=== PATIENT | male | born 1950 | race Caucasian/White ===

== ENCOUNTER 2018-04-03 06:43 | Inpatient (IN) | payer OTHER ==
[2018-04-03] VITALS (7 sets, daily range): BP systolic 105–144; BP diastolic 58–77
[~2018-04-03] VITALS: Ht 177.8 cm; Wt 74.8 kg
--- NOTE | ~2018-04-03 | EKG ---
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
--- NOTE | ~2018-04-03 | EKG ---
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 : 1950 Requested By: Yesenia Ramos Order Number: [id number] MD: John Grey Measurements Intervals [place] Rate: 60 P: [place]: 195 QRS: 52 QRSD: 98 T: 74 QT: 425 QTc: 425 Interpretive Statements Atrial-paced complexes Minimal ST elevation, inferior leads Baseline wander in lead(s) V3 No previous ECG available for comparison Electronically Signed On 04-03-2018 13:09:03 CDT by John Grey [email or web address] <ELECTRONICALLY SIGNED> By: John Grey MD, [facility] 04/03/18 1309 8 8 John Grey MD, [facility] /EPI
--- NOTE | ~2018-04-03 | 2DMMODE ---
[facility] [address] [place] [address] 2 D/M-MODE ECHOCARDIOGRAM Name: FORREST CERDA Room #: 418-P ADM IN .R.#: [id number] Admission: 04/03/18 Attend Phys: Gary Small, Discharge: Date of : 46 Date of Service: 04/03/18 1321 Report #: [id number] THIS REPORT FOR: //name// APPROVED REPORT Study performed: 04/03/2018 12:12:50 EXAM: Comprehensive 2D, Doppler, and color-flow Echocardiogram Patient Location: Bedside Room #: 418 Status: on-call BSA: 1.92 HR: 60 bpm BP: 120/71 mmHg Other Information Study Quality: Adequate Indications Chest Pain Hypertension/HDD Mitral valve repair 2D Dimensions RVDd: 40.47 mm LVEF(%): 53.32 (>50%) IVSd: 9.44 (7-11mm) LVOT Diam: 20.99 (18-24mm) LVDd: 49.62 mm PWd: 9.29 (7-11mm) Ascending Ao: 36.60 (22-36mm) LVDs: 35.94 (25-40mm) Aortic Root: 33.51 mm IVC: 18.00 mm Aldridge's LVEF: 53.32 % Volumes Left Atrial Volume (Systole) Single Plane 4CH: 73.65 mL Single Plane 2CH: 76.25 mL LA ESV Index: 43.00 mL/m2 Aortic Valve AoV Peak José Miguel.: 1.04 m/s AO Peak Gr.: 4.31 mmHg LVOT Max P.71 mmHg LVOT Max V: 0.82 m/s DERRICK Vmax: 2.74 cm2 Mitral Valve E/A Ratio: 0.9 [facility] [place] [address] 2 D/M-MODE ECHOCARDIOGRAM Name: FORREST CERDA Room #: 418-P [facility] IN ..#: [id number] Admission: 04/03/18 Attend Phys: Gary Small, Discharge: Date of : 46 Date of Service: 04/03/18 1321 Report #: [id number] MV Decel. Time: 350.42 ms MV E Max José Miguel.: 0.94 m/s MV A José Miguel.: 1.04 m/s MV PHT: 101.62 ms IVRT: 119.95 ms Pulmonary Valve PV Peak José Miguel.: 0.82 m/s PV Peak Gr.: 2.70 mmHg Pulmonary Vein P Vein S: 0.27 m/s P Vein A: 0.18 m/s P Vein D: 0.46 m/s P Vein A Dur.: 96.9 msec P Vein S/D Ratio: 0.59 Tricuspid Valve TR Peak José Miguel.: 2.53 m/s TR Peak Gr.: 25.69 mmHg PA Pressure: 30.00 mmHg Left Ventricle The left ventricle is normal size. There is normal LV segmental wall motion. There is normal left ventricular wall thickness. The left ventricular systolic function is normal. The left ventricular ejection fraction is within the normal range. LVEF is 55-60%. Grade I - abnormal relaxation pattern. Right Ventricle The right ventricle is normal size. The right ventricular systolic function is normal. Pacemaker lead is present in the right ventricle. Atria Left atrium is dilated. Right atrium is dilated. Pacemaker lead is present in the right atrium. Aortic Valve The aortic valve is normal in structure. Trace aortic regurgitation. There is no aortic valvular stenosis. Mitral Valve #34 mm Mitral valve ring is noted. Changes consitent with posterior leaflet repair Trace mitral regurgitation. No evidence of mitral valve stenosis. Tricuspid Valve The tricuspid valve is normal in structure. There is trace to mild tricuspid regurgitation. The right atrial pressure is estimated at 30 [facility] [address] [place] [address] 2 D/M-MODE ECHOCARDIOGRAM Name: FORREST CERDA Room #: 418-P [facility] IN .R.#: [id number] Admission: 04/03/18 Attend Phys: Gary Small, Discharge: Date of : 46 Date of Service: 04/03/18 1321 Report #: [id number] mmHg. There is no pulmonary hypertension. Pulmonic Valve The pulmonary valve is normal in structure. Trace pulmonic regurgitation. Great Vessels The aortic root is normal in size. IVC is normal in size and collapses >50% with inspiration. Pericardium There is no pericardial effusion. <Conclusion> The left ventricular systolic function is normal. There is normal LV segmental wall motion. LVEF is 55-60%. Mild diastolic dysfunction Both atria are mildly dilated. Pacemaker lead is present in the right atrium. #34 mm mitral valve ring noted. Changes consitent with posterior leaflet repair. Trace mitral regurgitation, no stenosis. There is trace to mild tricuspid regurgitation. Pulmonary artery pressure estimated at 30 mmHg. There is no pericardial effusion. <ELECTRONICALLY SIGNED> By: John Grey MD, FACC 04/03/18 1321 132 20 John Grey MD, FACC /INF
--- NOTE | ~2018-04-03 | H ---
[facility] [place] [address] HISTORY AND PHYSICAL Name: PRASHANTFORREST Hannah Room #: 418-P [facility] IN M.R.#: [id number] Admission: 04/03/18 Attend Phys: Gary Small MD Discharge: 04/04/18 Date of : 46 Report #: [id number] THIS REPORT FOR: //name// CC: Gary Small [facility] unknown DATE OF SERVICE: 04/03/2018 REASON FOR THE PRESENTATION: Chest pain. HISTORY OF PRESENT ILLNESS: A 68-year-old who woke up 1:30 this morning with left-sided chest pain associated with taking a deep breath. 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 He has also had a cardiac ablation back in 2000. Due to repeated episodes of PVC associated with significant symptoms. He actually lives in [place] and was visiting some family members here. When he woke up this morning, he had some issues with left-sided chest pain associated with nausea. No radiation of the pain. No previous similar episodes. No arm or neck pain. No loss of consciousness. No hematemesis. No hemoptysis and no cough. He denies any history of DVT in the past. He is not aware of any previous coronary artery disease and never had cardiac stents. His mitral valve band angioplasty was done in 1998 in [facility] and his pacemaker was placed back in 2000. Initial troponins were negative. Because of his risk factors, he was admitted for further evaluation and management. PAST MEDICAL HISTORY: 1. Hypertension. 2. Hyperlipidemia. 3. Status post band mitral valve annuloplasty. 4. Status post pacemaker for daniel-tachy syndrome. 5. Status post ablation for PVCs. 6. Bilateral shoulder surgeries. FAMILY HISTORY: Significant for hypertension. SOCIAL HISTORY: He denies drug or alcohol abuse. He is very active. He is retired and lives in [place]. MEDICATIONS: 1. Multaq. 2. Omeprazole. 3. Ramipril. 4. Rosuvastatin. REVIEW OF SYSTEMS: [facility] [address] [place] [address] HISTORY AND PHYSICAL Name: FORREST CERDA Room #: 418-P [facility] IN .R.#: [id number] Admission: 04/03/18 Attend Phys: Gary Small MD Discharge: 04/04/18 Date of : 46 Report #: [id number] GENERAL: No fever or chills. CARDIOVASCULAR: As per the history of present illness. PULMONARY: No cough or hemoptysis. GASTROINTESTINAL: No nausea or vomiting. GENITOURINARY: No frequency, no urgency. PHYSICAL EXAMINATION: GENERAL: He is alert, oriented, in no apparent distress. VITAL SIGNS: Blood pressure is 121/58. HEAD AND NECK: No jugular venous distention, no bruit, no thyromegaly. CHEST: Clear to auscultation bilaterally. CARDIOVASCULAR: Regular, no rub detected. ABDOMEN: Soft, nontender with no hepatosplenomegaly. LOWER EXTREMITIES: No edema, intact peripheral pulses. SKIN: There is a left-sided chest wall pacemaker. Scars on both shoulders. LABORATORY VALUES: Reviewed. White blood cell count 13.7, sodium 140, potassium 4.2, BUN is 21, creatinine is 1.4. Initial troponin is negative. Chest x-ray was reviewed with no acute process. ASSESSMENT, IMPRESSION AND PLAN: 1. Chest pain. 2. Hypertension. 3. Status post pacemaker insertion. 4. Mitral valve band annuloplasty. 5. Hyperlipidemia. 6. Ablation for premature ventricular contractions in the past. 7. Admission. 8. Resume his blood pressure medications. 9. Cardiology consultation. 10. Serial troponins and EKGs. 11. Routine deep vein thrombosis and gastrointestinal prophylaxis. 12. If persistent symptoms, we will send the patient to have a pulmonary embolism study given his recent flights. <ELECTRONICALLY SIGNED> By: Gary Small MD 04/04/18 1548 0922 1012 Gary Small MD /nt
--- NOTE | ~2018-04-03 | HC ---
[facility] [place] [address] CONSULTATION Name: FORREST CERDA Room #: 418-P [facility] IN M.R.#: [id number] Admission: 04/03/18 Attend Phys: Gary Small MD Discharge: 04/04/18 Date of : 46 Report #: [id number] THIS REPORT FOR: //name// CC: Gary Small [facility] unknown DATE OF SERVICE: 04/03/2018 REASON FOR CONSULTATION: Chest pain. HISTORY OF PRESENT ILLNESS: The patient is a 68-year-old gentleman with a moderately complex cardiac history including remote mitral valve repair in 1998 at the [facility] by Dr. Edson Campbell. He underwent subsequent cardiac ablation in [place] a couple of years thereafter. He had symptomatic bradycardia with placement of a dual chamber St. Anatoly pacemaker. He has had atrial fibrillation seen on device interrogation, although nothing recently, this has been suppressed with Multaq. He is visiting to the [place] area from [place]. He awakened in the middle of the night with midsternal chest tightness, this was predictably worse with deep breathing. The pain seemed to be worse when he was on his left side. He presented to the Emergency Department where he was given aspirin. His EKG demonstrated atrial pacing with very subtle 0.[address] segment elevation in limb lead III. He denies any other associated symptoms. He denies symptoms of recurrent atrial fibrillation. No heart failure symptoms, near syncope or syncope. MEDICATIONS: Include ramipril, rosuvastatin, omeprazole and Multaq 400 mg twice daily. PAST MEDICAL HISTORY: His past history and medical records have been reviewed and include a history of hypertension, dyslipidemia, mitral valve repair with annuloplasty ring, sick sinus syndrome with pacemaker implantation, history of PVCs and bilateral shoulder surgeries. SOCIAL HISTORY: He is a nonsmoker, nondrinker. He is active. He exercises regularly without limitation. 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 FAMILY HISTORY: Notable for heart disease of some sort. His dad had mitral valve surgery. REVIEW OF SYSTEMS: All systems negative except as that noted above. PHYSICAL EXAMINATION: GENERAL: He is a pleasant gentleman, in no distress. [facility] [address] [place] [address] CONSULTATION Name: FORREST CERDA Room #: 418-P [facility] IN .R.#: [id number] Admission: 04/03/18 Attend Phys: Gary Small MD Discharge: 04/04/18 Date of : 46 Report #: [id number] VITAL SIGNS: Blood pressure is 120/70, heart rate is 60 and regular. He is afebrile, 5 feet 10 inches tall, 165 pounds. HEENT: There are neither xanthelasma, subcutaneous xanthomata, oral mucosal or digital cyanosis or kyphoscoliosis present. CHEST: Clear to auscultation and percussion. CARDIOVASCULAR: Regular rate and rhythm with normal S1, S2. There is a soft systolic murmur at the left sternal border, not sure if there is a rub or not. Jugular venous pressure is not elevated. ABDOMEN: Soft and nontender. EXTREMITIES: Without cyanosis, clubbing or edema. Radial pulses are 2+. NEUROLOGIC: He is alert with a nonfocal exam. LABORATORY DATA: EKG as detailed above. Sodium 140, potassium 4.2, creatinine 1.4, troponin 0. D-dimer normal. White count 13.7, hemoglobin 15, hematocrit 43, platelet count 271. Chest x-ray is normal. IMPRESSION: 1. Chest pain with pleuritic and/or pericarditic features, possible pericarditis. 2. Remote mitral valve repair for prolapse in 1998. 3. Paroxysmal atrial fibrillation with remote ablation, prior St. Anatoly dual-chamber pacemaker implantation. 4. Hypertension. 5. Dyslipidemia. RECOMMENDATIONS: 1. Sedimentation rate and CRP. 2. Echocardiogram with Doppler. 3. If troponins are negative and clinical course remains stable, consider outpatient stress testing. <ELECTRONICALLY SIGNED> By: John Grey MD, FACC 04/05/18 0851 1126 1754 John Grey MD, FACC /nt
--- NOTE | ~2018-04-03 | EKG ---
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 : 1950 Requested By: Yesenia Ramos Order Number: [id number] MD: John Grey Measurements Intervals [place] Rate: 66 P: 36 NE: 226 QRS: 53 QRSD: 102 T: 78 QT: 414 QTc: 434 Interpretive Statements Atrial-paced complexes Prolonged NE interval Minimal inferior ST elevation No previous ECG available for comparison Electronically Signed On 04-04-2018 12:57:59 CDT by John Grey [email or web address] <ELECTRONICALLY SIGNED> By: John Grey MD, [facility] 04/04/18 1257 0649 0649 John Grey MD, [facility] /EPI
--- NOTE | ~2018-04-03 | EKG ---
[address] [address] ELECTROCARDIOGRAM REPORT Name: FORREST CERDA Hannah Room #: 418- DIS IN M.R.#: [id number] Admission: 04/03/18 Attend Phys: Gary Small MD Discharge: 04/04/18 Date of : 46 Report #: [id number] THIS REPORT FOR: //name// [facility] Test Date: 2018-04-04 Test Time: 09:11:32 Pat Name: FORREST CERDA Department: Room: 418 Gender: M Clinical Product Manager: RANDY : 1950 Requested By: John Grey Order Number: [id number] MD: John Grey Measurements Intervals [place] Rate: 60 P: [place]: 130 QRS: 7 QRSD: 104 T: 93 QT: 425 QTc: 425 Interpretive Statements Atrial-paced rhythm Low voltage, precordial leads Borderline repolarization abnormality Minimal inferior ST segment elevation, unchanged Compared to ECG 04/03/2018 07:12:46 No significant change was found Electronically Signed On 04-04-2018 13:07:30 CDT by John Grey [email or web address] <ELECTRONICALLY SIGNED> By: John Grey MD, [facility] 04/04/18 1307 0911 0911 John Grey MD, [facility] /EPI
[2018-04-03] MEDS ORDERED: OMEPRAZOLE 20 M20 M1 PO (07:02)
[2018-04-03] MEDS ORDERED: CRESTOR10 MG PO (07:02)
[2018-04-03] MEDS ORDERED: ALTACE10 MG PO (07:03)
[2018-04-03 07:06] LABS: ABSOLUTE NEUTROPHILS 9.8 thou/uL (1.4-8.2); BASOPHILS 0.5 % (0.0-2.0); EOSINOPHILS 1.6 % (0.0-3.0); HEMATOCRIT 43.8 % (42.0-52.0); HEMOGLOBIN 15.1 gm/dL (14.0-18.0); LYMPHOCYTES 16.5 % (24.0-44.0); MCHC 34.6 g/dL (28.0-37.0); MCV 89.7 fL (80.0-100.0); MONOCYTES 9.5 % (1.0-8.0); PLATELET COUNT 271 thou/uL (150-400); POLYS 71.9 % (36.0-66.0); RBC 4.89 mil/uL (4.50-6.00); RDW 13.1 % (10.5-14.5); WBC 13.7 thou/uL (4.0-11.0)
[2018-04-03] MEDS ORDERED: [UNRECOGNIZED DRUG - REMARK] (07:08)
[2018-04-03 07:24] LABS: ANION GAP 11 mmol/L (7-16); BUN 21 mg/dL (7-18); CALCIUM 9.1 mg/dL (8.5-10.1); CHLORIDE 103 mmol/L (98-107); CO2 26 mmol/L (21-32); CREATININE 1.4 mg/dL (0.7-1.3); GLUCOSE 111 mg/dL (74-106); POTASSIUM 4.2 mmol/L (3.5-5.1); SODIUM 140 mmol/L (136-145)
[2018-04-03] MEDS ORDERED: MULTAQ400 MG PO (07:26)
[2018-04-03 07:31] LABS: SGOT 26 U/L (15-37); SGPT 35 U/L (30-65); TOTAL BILIRUBIN 0.9 mg/dL (<0.1-1.0); TOTAL PROTEIN 7.3 g/dL (6.4-8.2); TROPONIN-I <0.06 ng/mL (<0.06)
[2018-04-04 05:05] LABS: HEMATOCRIT 42.3 % (42.0-52.0); HEMOGLOBIN 14.7 gm/dL (14.0-18.0); MCH 31.3 pg (26.0-34.0); MCHC 34.7 g/dL (28.0-37.0); MCV 90.2 fL (80.0-100.0); RBC 4.69 mil/uL (4.50-6.00); RDW 13.3 % (10.5-14.5); WBC 9.4 thou/uL (4.0-11.0)
[2018-04-04 05:15] VITALS: BP 125/87
[2018-04-04 05:25] LABS: ALBUMIN 3.4 g/dL (3.4-5.0); CALCIUM 8.6 mg/dL (8.5-10.1); CREATININE 1.3 mg/dL (0.7-1.3); POTASSIUM 4.2 mmol/L (3.5-5.1); TOTAL PROTEIN 6.5 g/dL (6.4-8.2)
[2018-04-04 09:12] VITALS: BP 125/87
[2018-04-04 09:21] VITALS: BP 117/75
[2018-04-04 09:51] VITALS: BP 117/75
[2018-04-04 10:17] VITALS: BP 117/75
== END 2018-04-04 10:20 | disposition home or self-care (01) | DRG 315 ==
LOC: ER 06:43 → EROBS 08:01 → 4E 09:01
PROVIDERS: Hospitalist; Student in an Organized Health Care Education/Training Program
DX: I31.9 Disease of pericardium, unspecified (principal); I47.1 Supraventricular tachycardia; R07.89 Other chest pain; I10 Essential (primary) hypertension; E78.5 Hyperlipidemia, unspecified; I49.5 Sick sinus syndrome; I48.0 Paroxysmal atrial fibrillation; Z79.82 Long term (current) use of aspirin; Z79.899 Other long term (current) drug therapy; Z88.6 Allergy status to analgesic agent; Z88.8 Allergy status to other drugs, medicaments and biological substances; Z95.0 Presence of cardiac pacemaker; Z82.49 Family history of ischemic heart disease and other diseases of the circulatory system
CPT/HCPCS: 10183